=== PATIENT | female | born 1985 | race Two or more races ===

== ENCOUNTER 2019-10-05 02:13 | Inpatient (IN) | payer OTHER ==
[~2019-10-05 02:13] MED LIST: Bupivacaine 0.25% 10 ML SDV ONE; ePHEDrine 50 MG/ML SDV ONE
[2019-10-05] MEDS ORDERED: Acetaminophen 325 MG Tab PO PRN ×2 (05:26→16:23)
[2019-10-05] MEDS ORDERED: Lidocaine 1% 50 ML MDV INJECT ONE (05:26)
[2019-10-05] MEDS ORDERED: Nalbuphine 10 MG/ML Syringe IVPUSH PRN (05:26)
[2019-10-05] MEDS ORDERED: Calcium Carbonate 500 MG Tab.Chew PO PRN (05:26)
[2019-10-05] MEDS ORDERED: Sodium Chloride 0.9% 10 ML Syringe FLUSH PRN (05:26)
[2019-10-05] MEDS ORDERED: Ondansetron 4 MG/2 ML SDV IVPUSH PRN (05:26)
[2019-10-05] MEDS ORDERED: Oxytocin/Lactated Ringers 10 UNIT/1,000 ML BAG IV SCH ×2 (05:30)
[2019-10-05] MEDS ORDERED: fentaNYL 100 MCG/2 ML SDV EPIDUR PRN (05:54)
[2019-10-05] MEDS ORDERED: diphenhydrAMINE 50 MG/ML SDV IVPUSH PRN (05:54)
[2019-10-05] MEDS ORDERED: Bupivacaine/fentaNYL/NS 100 ML Bag EPIDUR PRN (05:54)
[2019-10-05] MEDS: Lactated Ringers 1,000 ML IV SCH ×3 (06:10→11:27)
--- NOTE | 2019-10-05 06:29 | PCM.PREANE ---
Preanesthetic Assessment - Procedure Proposed Procedure: epidural - Anesthesia/Transfusion/Family Hx Anesthesia History: Prior Anesthesia Without Reaction Family History of Anesthesia Reaction: No Transfusion History: No Prior Transfusion(s) - Review of Systems General: No Symptoms Pulmonary: No Symptoms Cardiovascular: No Symptoms Gastrointestinal: Abdominal Pain (labor) Neurological: No Symptoms Other: Reports: None - Physical Assessment Vital Signs: Last Vital Signs Temp 36.4 C 10/05/19 02:31 Pulse 91 10/05/19 02:31 Resp 16 10/05/19 02:31 BP 113/60 10/05/19 02:31 Pulse Ox 98 10/05/19 02:31 Height: 1.55 m Weight: 81.193 kg ASA Class: 2 Mental Status: Alert & Oriented x3 Airway Class: Mallampati = 1 Dentition: Reports: Normal Dentition Thyro-Mental Finger Breadths: 3 Mouth Opening Finger Breadths: 3 ROM/Head Extension: Full Lungs: Clear to Auscultation, Normal Respiratory Effort Cardiovascular: Regular Rate, Regular Rhythm - Lab Values: Laboratory Last Values WBC 9.97 K/mm3 (3.98-10.04) 10/05/19 05:35 RBC 4.35 M/mm3 (3.98-5.22) 10/05/19 05:35 Hgb 13.3 gm/dl (11.2-15.7) 10/05/19 05:35 Hct 39.4 % (34.1-44.9) 10/05/19 05:35 MCV 90.6 fl (79.4-94.8) 10/05/19 05:35 MCH 30.6 pg (25.6-32.2) 10/05/19 05:35 MCHC 33.8 g/dl (32.2-35.5) 10/05/19 05:35 RDW Std Deviation 47.1 fL (36.4-46.3) H 10/05/19 05:35 Plt Count 224 K/mm3 (182-369) 10/05/19 05:35 MPV 9.9 fl (9.4-12.3) 10/05/19 05:35 Neut % (Auto) 81.8 % (34.0-71.1) H 10/05/19 05:35 Lymph % (Auto) 13.9 % (19.3-51.7) L 10/05/19 05:35 Apache % (Auto) 3.9 % (4.7-12.5) L 10/05/19 05:35 Eos % (Auto) 0.1 (0.7-5.8) L 10/05/19 05:35 Baso % (Auto) 0.1 % (0.1-1.2) 10/05/19 05:35 Neut # (Auto) 8.15 K/mm3 (1.56-6.13) H 10/05/19 05:35 Lymph # (Auto) 1.39 K/mm3 (1.18-3.74) 10/05/19 05:35 [place] # (Auto) 0.39 K/mm3 (0.24-0.36) H 10/05/19 05:35 Eos # (Auto) 0.01 K/mm3 (0.04-0.36) L 10/05/19 05:35 Baso # (Auto) 0.01 K/mm3 (0.01-0.08) 10/05/19 05:35 - Allergies Allergies/Adverse Reactions: Allergies Allergy/AdvReac Type Severity Reaction Status Date / Time No Known Allergies Allergy Verified 10/05/19 02:32 - Anesthesia Plan Pre-Op Medication Ordered: None - Acknowledgements Anesthesia Type Planned: Epidural Pt an Appropriate Candidate for the Planned Anesthesia: Yes Alternatives and Risks of Anesthesia Discussed w Pt/Guardian: Yes Pt/Guardian Understands and Agrees with Anesthesia Plan: Yes PreAnesthesia Questionnaire - Past Health History Medical/Surgical History: Denies Medical/Surgical History HEENT History: Reports: Other (See Below) Other HEENT History: Central serous chorioretinopathy Gastrointestinal History: Reports: GERD 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: - SUBSTANCE USE Smoking Status *Q: Never Smoker Second Hand Smoke Exposure: No Recreational Drug Use History: No - HOME MEDS Home Medications: Home Meds Iron,Carbonyl/Vit C/Vit B12/Fa [Iron 100 Plus Tablet] 1 each PO DAILY 10/05/19 [ History] ATS656/Iron Fumarate/FA/DSS [ 19 Tablet] 1 each PO DAILY 10/05/19 [ History] - CURRENT (IN HOUSE) MEDS Current Meds: Current Medications Acetaminophen (Tylenol) 650 mg PO Q4H PRN PRN Reason: Pain (Mild 1-3) and fever Calcium Carbonate/Glycine (Tums) 1,000 mg PO Q2H PRN PRN Reason: Indigestion Diphenhydramine HCl (Benadryl) 25 mg IVPUSH Q6H PRN PRN Reason: Itching Ephedrine Sulfate (Ephedrine Sulfate) 5 mg IVPUSH ASDIRECTED PRN PRN Reason: HYPOTENTSION Fentanyl (Sublimaze) 100 mcg EPIDUR Q3H PRN PRN Reason: Pain Last Admin: 10/05/19 06:11 Dose: 100 mcg Fentanyl/Bupivacaine HCl (Fentanyl/Bupivacaine/Ns 2 Mcg-0.125% 100 Ml) 1 ml EPIDUR CONTINUOUS PRN PRN Reason: Pain Last Admin: 10/05/19 06:11 Dose: 100 ml Lactated Ringer's (Ringers, Lactated) 1,000 mls @ 100 mls/hr IV ASDIRECTED LANDRY Last Admin: 10/05/19 06:10 Dose: 100 mls/hr Oxytocin/Lactated Ringer's (Pitocin In Lr 10 Units/1,000 Ml) 10 unit in 1,000 mls @ 100 mls/hr IV .CONTINUOUS LANDRY Oxytocin/Lactated Ringer's (Pitocin In Lr 10 Units/1,000 Ml) 10 unit in 1,000 mls @ 12 mls/hr IV TITRATE LANDRY; Protocol Nalbuphine HCl (Nubain) 10 mg IVPUSH Q2H PRN PRN Reason: Pain Ondansetron HCl (Zofran) 4 mg IVPUSH Q4H PRN PRN Reason: Nausea/Vomiting Sodium Chloride (Saline Flush) 10 ml FLUSH ASDIRECTED PRN PRN Reason: Keep Vein Open Discontinued Medications Lidocaine HCl (Xylocaine 1%) 50 ml INJECT ONETIME ONE Stop: 10/05/19 05:27
--- NOTE | 2019-10-05 06:33 | PCM.SN ---
- Free Text/Narrative Note: 0530 called for IV start right wrist 20 ga. good blood flow good flush out room at 0610
[2019-10-05] MEDS: ePHEDrine 50 MG/ML SDV IVPUSH PRN ×2 (06:45→06:55)
--- NOTE | 2019-10-05 12:09 | PCM.LDHP ---
L&D History of Present Illness - General Date of Service: 10/05/19 Admit Problem/Dx: Patient Status Order with Admit Dx/Problem 10/05/19 02:31 Patient Status [ADT] Routine 10/05/19 05:00 Admission Status [Patient Status] [ADT] Routine Admission Diagnosis/Problem Admission Diagnosis/Problem 10/05/19 11:56 Brooke is a 33-year-old 2 para 0010 female admitted to labor and delivery at 38-5/7 weeks gestational age with an RASHMI of 10/14/2019 in active labor with progressive cervical dilation. She presently is about 5 cm dilated, 100% effaced, -2 station, bag barone intact ruptured with resultant clear amniotic fluid. Source of Information: Patient History Limitations: Reports: No Limitations - History of Present Illness Introduction:: Brooke is a 33-year-old 2 para 0010 female admitted to labor and delivery at 38-5/7 weeks gestational age with an RAHSMI of 10/14/2019 in active labor with progressive cervical dilation. She presently is about 5 cm dilated, 100% effaced, -2 station, bag barone intact ruptured with resultant clear amniotic fluid. She started labor within the last 18 hours. It progressed. She is not able to get any rest during the course of last night. heart tones are reassuring. 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 Patient had menarche at age 16. Cycles regular every 28 days. She has regular monthly cycles that are timolol. Not using any control to time conception. Final RASHMI is 01/07/2019. It is by this last menstrual period and the supporting ultrasounds done 03/12/2019, 2018 and 06/24/2019 by which the RASHMI of 10/14/2019 was determined. Patient had a previous spontaneous miscarriage first trimester. Her hCG was positive on 2018. course: Patient was initially seen for first visit on 2018 at 9-1/7 weeks gestational age. She is seen on a regular basis throughout the course of the . Her weight increased from 154.8 pounds 276.6 pounds for a 22 pound weight gain. Fundal height growth was appropriate. Vital signs remained stable throughout the course. Of note is a recent event that happened regarding patient's right eye. She had blurry vision and was seen in clinic. At that time she was sent to ophthalmology approximately the second week of September 2019 at which time her vision was 20/150 in the right eye with exam normal to exception of was diagnosed as central serous chorioretinopathy in the right eye. This is felt to be a benign process and one that would resolve with time. Ophthalmology gave permission for patient to have normal labor and natural delivery. Patient feels symptoms have significantly improved since the initial diagnosis of this chorioretinopathy. The symptoms whatsoever and is doing fine. Baby has been active. Patient is Rh- and did receive RhoGAM during the course of her . As is given on 07/23/2019. Laboratory testing and shows blood to be A- with a negative antibody screen. Hemoglobin was 13.6 g/dL. Platelets are 274,000. Patient is rubella immune. RPR is nonreactive. Hepatitis B surface antigen and HIV assays were both negative. Chlamydia and gonorrhea tests were both negative. Second trimester hemoglobin was 11.4 g/dL. Platelets are 275,000. One-hour GTT was normal at 112 mg/dL. Group B strep screen was negative. Allergies: None Medications: 1. Vitamin D 1.5 mg capsules weekly 2. Multivitamins daily Past medical history: 1. First trimester miscarriage. 2. Serous chorioretinopathyright eye Past surgical history: 1. Breast augmentation surgery 2006. Family history: Paternal grandmother with breast cancer. Paternal grandmother with liver cancerwas not and alcohol consumer. Maternal grandfather with pancreatic cancer. Patient is an only child. Social history: Patient is . is Reji. She lives in [place], [place]. She does not work outside the home. She does not use any significant most alcohol, drugs or tobacco. Review of systems: In general patient has only the complaint of contractions noted. She is tolerating these very well. Skin: Negative HEENT: Right eye shows some blurriness of vision but this is significantly improved over approximate 2 weeks ago when diagnosis of serous chorioretinopathy was made. Lungs: No infectious symptoms or shortness of breath Cardiovascular: No chest pain or exercise intolerance. GI: Negative : Changes associated with . Musculoskeletal: Negative Neurological: Negative In general the patient is well-developed, well-nourished, pleasant female of stated age in no acute distress. Skin is warm dry without lesions. HEENT, neck and back within normal limits. Lungs: Normal respiratory effort noted. Cardiovascular regular rate and rhythm is noted. Abdomen is gravid with fundal height consistent with term . Genital per digital evaluation as outlined in history of present illness. Extremities and neurological exam are grossly within normal limits. Pain Score: 0 - Related Data Allergies/Adverse Reactions: Allergies Allergy/AdvReac Type Severity Reaction Status Date / Time No Known Allergies Allergy Verified 10/05/19 02:32 Home Medications: Home Meds Iron,Carbonyl/Vit C/Vit B12/Fa [Iron 100 Plus Tablet] 1 each PO DAILY 10/05/19 [ History] EXI538/Iron Fumarate/FA/DSS [ 19 Tablet] 1 each PO DAILY 10/05/19 [ History] Past Medical History - Past Health History Medical/Surgical History: Denies Medical/Surgical History HEENT History: Reports: Other (See Below) Other HEENT History: Central serous chorioretinopathy Gastrointestinal History: Reports: GERD 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: Social & Family History - Family History Family Medical History: Noncontributory - Tobacco Use Smoking Status *Q: Never Smoker Second Hand Smoke Exposure: No - Caffeine Use Caffeine Use: Reports: Coffee - Recreational Drug Use Recreational Drug Use: No H&P Review of Systems - Review of Systems: Review Of Systems: See Below L&D Exam - Exam Exam: See Below - Vital Signs Vital Signs: Last Vital Signs Temp 36.4 C 10/05/19 02:31 Pulse 91 10/05/19 02:31 Resp 16 10/05/19 02:31 BP 113/60 10/05/19 02:31 Pulse Ox 98 10/05/19 02:31 Weight: 81.193 kg - Patient Data Lab Results Last 24 hrs: Laboratory Results - last 24 hr 10/05/19 Range/Units 05:35 WBC 9.97 (3.98-10.04) K/mm3 RBC 4.35 (3.98-5.22) M/mm3 Hgb 13.3 (11.2-15.7) gm/dl Hct 39.4 (34.1-44.9) % MCV 90.6 (79.4-94.8) fl MCH 30.6 (25.6-32.2) pg MCHC 33.8 (32.2-35.5) g/dl RDW Std Deviation 47.1 H (36.4-46.3) fL Plt Count 224 (182-369) K/mm3 MPV 9.9 (9.4-12.3) fl Neut % (Auto) 81.8 H (34.0-71.1) % Lymph % (Auto) 13.9 L (19.3-51.7) % Harrison % (Auto) 3.9 L (4.7-12.5) % Eos % (Auto) 0.1 L (0.7-5.8) Baso % (Auto) 0.1 (0.1-1.2) % Neut # (Auto) 8.15 H (1.56-6.13) K/mm3 Lymph # (Auto) 1.39 (1.18-3.74) K/mm3 Harrison # (Auto) 0.39 H (0.24-0.36) K/mm3 Eos # (Auto) 0.01 L (0.04-0.36) K/mm3 Baso # (Auto) 0.01 (0.01-0.08) K/mm3 Result Diagrams: 10/05/19 05:35 Problem List Initiated/Reviewed/Updated: Yes Orders Last 24hrs: Active Orders 24 hr Category Date Time Status Admission Status [Patient Status] [ADT] Routine ADT 10/05/19 05:00 Active Activity as Tolerated [RC] PFP Care 10/05/19 05:29 Active Communication Order [RC] ASDIRECTED Care 10/05/19 05:29 Active Communication Order [RC] ASDIRECTED Care 10/05/19 05:54 Active Notify Provider [RC] ASDIRECTED Care 10/05/19 05:54 Active Notify Provider [RC] PFP Care 10/05/19 05:29 Active Notify Provider [RC] PRN Care 10/05/19 05:29 Active Oxygen Therapy [RC] ASDIRECTED Care 10/05/19 05:54 Active Peripheral IV Care [RC] . DIRECTED Care 10/05/19 05:29 Active Pulse Oximetry [RC] ASDIRECTED Care 10/05/19 05:54 Active Vital Signs [RC] PER UNIT ROUTINE Care 10/05/19 02:31 Active Regular Diet [DIET] Diet 10/05/19 Breakfast Active RAPID PLASMA REAGIN,RPR [CHEM] Routine Lab 10/05/19 05:35 Received Acetaminophen [Tylenol] Med 10/05/19 05:26 Active 650 mg PO Q4H PRN Bupivacaine/fentaNYL/NS [fentaNYL/Bupivacaine/NS 2 MCG- Med 10/05/19 05:54 Active 0.125% 100 ML] 1 ml EPIDUR CONTINUOUS PRN Calcium Carbonate [Tums] Med 10/05/19 05:26 Active 1,000 mg PO Q2H PRN Lactated Ringers [Ringers, Lactated] 1,000 ml Med 10/05/19 05:30 Active IV ASDIRECTED Nalbuphine [Nubain] Med 10/05/19 05:26 Active 10 mg IVPUSH Q2H PRN Ondansetron [Zofran] Med 10/05/19 05:26 Active 4 mg IVPUSH Q4H PRN Oxytocin/Lactated Ringers [Pitocin in LR 10 Units/1,000 Med 10/05/19 05:30 Active ML] 10 unit in 1,000 ml IV .CONTINUOUS Oxytocin/Lactated Ringers [Pitocin in LR 10 Units/1,000 Med 10/05/19 05:30 Active ML] 10 unit in 1,000 ml IV TITRATE Sodium Chloride 0.9% [Saline Flush] Med 10/05/19 05:26 Active 10 ml FLUSH ASDIRECTED PRN diphenhydrAMINE [Benadryl] Med 10/05/19 05:54 Active 25 mg IVPUSH Q6H PRN ePHEDrine [ePHEDrine sulfate] Med 10/05/19 05:54 Active 5 mg IVPUSH ASDIRECTED PRN fentaNYL [Sublimaze] Med 10/05/19 05:54 Active 100 mcg EPIDUR Q3H PRN Electronic Heart Tones Ext w TOCO [WOMSER] Oth 10/05/19 05:29 Ordered Routine Electronic Heart Tones Internal [WOMSER] Per Unit Oth 10/05/19 05:29 Ordered Routine Peripheral IV Insertion Adult [OM.PC] Routine Oth 10/05/19 05:29 Ordered Resuscitation Status Routine Resus Stat 10/05/19 02:31 Ordered Medication Orders Acetaminophen (Tylenol) 650 mg PO Q4H PRN PRN Reason: Pain (Mild 1-3) and fever Calcium Carbonate/Glycine (Tums) 1,000 mg PO Q2H PRN PRN Reason: Indigestion Diphenhydramine HCl (Benadryl) 25 mg IVPUSH Q6H PRN PRN Reason: Itching Ephedrine Sulfate (Ephedrine Sulfate) 5 mg IVPUSH ASDIRECTED PRN PRN Reason: HYPOTENTSION Last Admin: 10/05/19 06:55 Dose: 5 mg Admin: 10/05/19 06:45 Dose: 5 mg Fentanyl (Sublimaze) 100 mcg EPIDUR Q3H PRN PRN Reason: Pain Last Admin: 10/05/19 06:11 Dose: 100 mcg Fentanyl/Bupivacaine HCl (Fentanyl/Bupivacaine/Ns 2 Mcg-0.125% 100 Ml) 1 ml EPIDUR CONTINUOUS PRN PRN Reason: Pain Last Admin: 10/05/19 06:11 Dose: 100 ml Lactated Ringer's (Ringers, Lactated) 1,000 mls @ 100 mls/hr IV ASDIRECTED LANDRY Last Admin: 10/05/19 11:27 Dose: 100 mls/hr Infusion: 10/05/19 11:27 Dose: 100 mls/hr Admin: 10/05/19 07:07 Dose: 100 mls/hr Infusion: 10/05/19 07:07 Dose: 100 mls/hr Admin: 10/05/19 06:10 Dose: 100 mls/hr Oxytocin/Lactated Ringer's (Pitocin In Lr 10 Units/1,000 Ml) 10 unit in 1,000 mls @ 100 mls/hr IV .CONTINUOUS LANDRY Oxytocin/Lactated Ringer's (Pitocin In Lr 10 Units/1,000 Ml) 10 unit in 1,000 mls @ 12 mls/hr IV TITRATE LANDRY; Protocol Last Titration: 10/05/19 11:41 Dose: 6 munits/min, 36 mls/hr Titration: 10/05/19 11:17 Dose: 4 munits/min, 24 mls/hr Admin: 10/05/19 10:49 Dose: 2 munits/min, 12 mls/hr Nalbuphine HCl (Nubain) 10 mg IVPUSH Q2H PRN PRN Reason: Pain Ondansetron HCl (Zofran) 4 mg IVPUSH Q4H PRN PRN Reason: Nausea/Vomiting Sodium Chloride (Saline Flush) 10 ml FLUSH ASDIRECTED PRN PRN Reason: Keep Vein Open Assessment/Plan Comment:: 1.8-5/7 week intrauterine , active labor, progressive cervical dilation. 2. Group B strep screen negative 3. Patient desiring epidural 4. Rubella immune. 5. Lenses vaccination given 06/19/2019. 6. T dap immunization given 07/17/2019. 7. Patient plans to breast-feed. Plan: 1. Anticipate normal spontaneous vaginal delivery 2. Epidural when necessary for labor analgesia 3. Support breast-feeding decision 4. Routine labor care 5. RPR and CBC upon admission.
--- NOTE | 2019-10-05 15:59 | PCM.SN ---
- Free Text/Narrative Note: Brooke is a 33-year-old 2 para 0010 female admitted to labor and delivery at 38-5/7 weeks gestational age with an RASHMI of 10/14/2019 in active labor with progressive cervical dilation. She presently is about 5 cm dilated, 100% effaced, -2 station, bag barone intact ruptured with resultant clear amniotic fluid. The patient made rapid progress and by approximately 1500 hrs. on 10/05/2019 she achieved complete cervical dilation. She pushed for approximately half an hour and delivered a viable, 6, female named Jasmyn Yeager in a direct occiput anterior position at 1532 hrs. The baby weighed 3010 g (6 pounds 10.2 ounces), had Apgars of 8 and 9 and a length of 19.5 inches. Baby was placed on mom's abdomen. Nose and mouth were bulb suctioned. Pitocin was increased to 500 mL per hour (20 units in a liter concentration) with intention to increase uterine tone and decrease likelihood of bleeding. Vocal cords lump pulsate for approximately 2 minutes. It was then clamped 2 and cut by the baby's father Reji. Umbilical cord blood was obtained. The umbilical cord had 3 blood vessels present within. The patient had a second-degree perineal laceration which was repaired with 3-0 Monocryl in a routine fashion. Epidural analgesia was used for perineal anesthesia for the repair. Patient tolerated the repair well. The placenta delivered in a Hammonds presentation, appeared intact and complete and was discarded per patient desire. Blood loss was 200 mL. Patient plans to breast-feed. Condition: Good
[2019-10-05] MEDS ORDERED: Witch Hazel Medicated Pads 40/Jar TOP PRN (16:23)
[2019-10-05] MEDS ORDERED: Benzocaine/Menthol 20%-0.5% Spray 56 GM Canister TOP PRN (16:23)
[2019-10-06] MEDS: Ibuprofen 600 MG Tab PO PRN ×3 (01:36→17:32)
--- NOTE | 2019-10-06 07:57 | PCM48HPAN ---
Post Anesthesia Note - EVALUATION WITHIN 48HRS OF ANESTHETIC Vital Signs in Normal Range: Yes Patient Participated in Evaluation: Yes Respiratory Function Stable: Yes Airway Patent: Yes Cardiovascular Function Stable: Yes Hydration Status Stable: Yes Pain Control Satisfactory: Yes Nausea and Vomiting Control Satisfactory: Yes Mental Status Recovered: Yes Vital Signs: Last Vital Signs Temp 36.7 C 10/06/19 03:07 Pulse 98 10/06/19 03:07 Resp 16 10/06/19 03:07 BP 94/47 L 10/06/19 03:07 Pulse Ox 96 10/06/19 03:07
--- NOTE | 2019-10-06 09:04 | PCM.SN ---
- Free Text/Narrative Note: note: Patient is doing well in the period. Minimal lochia, voiding well, ambulated without problems. Nursing without concerns. Patient is afebrile, vital signs are stable Abdomen is flat, soft, uterus is below the umbilicus and is firm and nontender. Legs are nontender. Assessment: recovery going well. Plan: Routine care. Patient be discharged home within the next 24-48 hours.
[2019-10-06] MEDS: Docusate Sodium 100 MG Cap PO PRN (09:18)
[2019-10-06] MEDS: Prenatal Multivitamin with Calcium/Folic Acid/Iron Tab PO SCH (09:18)
[2019-10-07] MEDS: Ibuprofen 600 MG Tab PO PRN (06:14)
[2019-10-07] MEDS: Docusate Sodium 100 MG Cap PO PRN (06:14)
--- NOTE | 2019-10-07 09:15 | PCM.DCSUM1 ---
Discharge Summary - Hospital Course Free Text/Narrative:: Brooke is a 33-year-old 2 para 0010 female admitted to labor and delivery at 38-5/7 weeks gestational age with an RASHMI of 10/14/2019 in active labor with progressive cervical dilation. She presently is about 5 cm dilated, 100% effaced, -2 station, bag barone intact ruptured with resultant clear amniotic fluid. The patient made rapid progress and by approximately 1500 hrs. on 10/05/2019 she achieved complete cervical dilation. She pushed for approximately half an hour and delivered a viable, 6, female infant named Jasmyn Yeager in a direct occiput anterior position at 1532 hrs. The baby weighed 3010 g (6 pounds 10.2 ounces), had Apgars of 8 and 9 and a length of 19.5 inches. Baby was placed on mom's abdomen. Nose and mouth were bulb suctioned. Pitocin was increased to 500 mL per hour (20 units in a liter concentration) with intention to increase uterine tone and decrease likelihood of bleeding. Vocal cords lump pulsate for approximately 2 minutes. It was then clamped 2 and cut by the baby's father Reji. Umbilical cord blood was obtained. The umbilical cord had 3 blood vessels present within. The patient had a second-degree perineal laceration which was repaired with 3-0 Monocryl in a routine fashion. Epidural analgesia was used for perineal anesthesia for the repair. Patient tolerated the repair well. The placenta delivered in a Hammonds presentation, appeared intact and complete and was discarded per patient desire. Blood loss was 200 mL. Patient plans to breast-feed. patient is doing well. She is nursing without problems, has minimal lochia, is voiding well and is ambulating without concerns. She is desiring discharge home. Condition: Good - Discharge Data Discharge Date: 10/07/19 Discharge Disposition: Home, Self-Care 01 Condition: Good - Referral to Home Health Primary Care Physician: Bryan Graham MD - Patient Instructions Diet: Regular Diet as Tolerated (Nursing diet with increased calcium and calories as recommended) Activity: As Tolerated (No intercourse or tampons until bleeding resolves) Driving: May Drive Today Showering/Bathing: May Shower (May take a bath) Notify Provider of: Fever, Increased Pain, Swelling and Redness, Nausea and/or Vomiting - Discharge Plan Home Medications: Home Meds Iron,Carbonyl/Vit C/Vit B12/Fa [Iron 100 Plus Tablet] 1 each PO DAILY 10/05/19 [ History] [id number]/Iron Fumarate/FA/DSS [ 19 Tablet] 1 each PO DAILY 10/05/19 [ History] Acetaminophen [Tylenol] 650 mg PO Q4H PRN tablet 10/07/19 [Rx] Ibuprofen [Motrin] 600 mg PO Q4H PRN tablet 10/07/19 [Rx] Referrals: Bryan Graham MD [Primary Care Provider] - ([facility] ) - Discharge Summary/Plan Comment DC Time >30 min.: No Discharge Summary/Plan Comment: Discharge instructions: 1. Discharge home 2. Diet, activity and follow-up discussed with patient. Recommend nursing diet with increased calories and calcium. 3. Precautions given concern increased pain, bleeding, temperature, signs/ symptoms of DVT/PE. 4. Medications per home medication was printed, discussed with and given to the patient. 5. Return to clinic-Dr. Graham[facility] in 2 weeks. Diagnosis: Term -delivered Condition: Good - Patient Data Vitals - Most Recent: Last Vital Signs Temp 36.5 C 10/07/19 02:16 Pulse 76 10/07/19 02:16 Resp 16 10/07/19 02:16 BP 102/64 10/07/19 02:16 Pulse Ox 98 10/07/19 02:16 Weight - Most Recent: 81.193 kg I&O - Last 24 hours: Intake & Output 10/06/19 10/07/19 10/07/19 22:59 06:59 14:59 Intake Total 420 Balance 420 Lab Results - Last 24 hrs: Laboratory Results - last 24 hr 10/06/19 Range/Units 05:15 Blood Type A NEGATIVE Gel Antibody Screen Negative Rhogam Indicated Yes, baby rh unknown H Med Orders - Current: Current Medications Acetaminophen (Tylenol) 650 mg PO Q4H PRN PRN Reason: mild pain or fever Last Admin: 10/06/19 21:26 Dose: 650 mg Benzocaine/Menthol (Dermoplast Pain Relief [place]) 0 gm TOP ASDIRECTED PRN PRN Reason: Perineal Comfort Measure Last Admin: 10/05/19 19:35 Dose: 1 applic Docusate Sodium (Colace) 100 mg PO BID PRN PRN Reason: Constipation Last Admin: 10/07/19 06:14 Dose: 100 mg Ibuprofen (Motrin) 600 mg PO Q4H PRN PRN Reason: Mild pain or fever Last Admin: 10/07/19 06:14 Dose: 600 mg Prenat Multivit/[employer] Supervisor/Iron/Folic Ac ( Plus Iron) 1 each PO DAILY LNADRY Last Admin: 10/06/19 09:18 Dose: 1 each Witch Marleen (Tucks) 1 pad TOP ASDIRECTED PRN PRN Reason: Pain Last Admin: 10/05/19 19:35 Dose: 1 applic Discontinued Medications Acetaminophen (Tylenol) 650 mg PO Q4H PRN PRN Reason: Pain (Mild 1-3) and fever Last Admin: 10/05/19 14:28 Dose: 650 mg Bupivacaine HCl (Sensorcaine-Mpf 0.25%) 10 ml .ROUTE .Andela-MED ONE Stop: 10/05/19 00:01 Calcium Carbonate/Glycine (Tums) 1,000 mg PO Q2H PRN PRN Reason: Indigestion Diphenhydramine HCl (Benadryl) 25 mg IVPUSH Q6H PRN PRN Reason: Itching Ephedrine Sulfate (Ephedrine Sulfate) 5 mg IVPUSH ASDIRECTED PRN PRN Reason: HYPOTENTSION Last Admin: 10/05/19 06:55 Dose: 5 mg Ephedrine Sulfate (Ephedrine Sulfate) 50 mg .ROUTE .STK-MED ONE Stop: 10/05/19 00:01 Fentanyl (Sublimaze) 100 mcg EPIDUR Q3H PRN PRN Reason: Pain Last Admin: 10/05/19 06:11 Dose: 100 mcg Fentanyl/Bupivacaine HCl (Fentanyl/Bupivacaine/Ns 2 Mcg-0.125% 100 Ml) 1 ml EPIDUR CONTINUOUS PRN PRN Reason: Pain Last Admin: 10/05/19 06:11 Dose: 100 ml Lactated Ringer's (Ringers, Lactated) 1,000 mls @ 100 mls/hr IV ASDIRECTED LANDRY Last Admin: 10/05/19 11:27 Dose: 100 mls/hr Oxytocin/Lactated Ringer's (Pitocin In Lr 10 Units/1,000 Ml) 10 unit in 1,000 mls @ 100 mls/hr IV .CONTINUOUS LANDRY Oxytocin/Lactated Ringer's (Pitocin In Lr 10 Units/1,000 Ml) 10 unit in 1,000 mls @ 12 mls/hr IV TITRATE LANDRY; Protocol Last Titration: 10/05/19 13:02 Dose: 8 munits/min, 48 mls/hr Lidocaine HCl (Xylocaine 1%) 50 ml INJECT ONETIME ONE Stop: 10/05/19 05:27 Last Admin: 10/05/19 07:19 Dose: Not Given Nalbuphine HCl (Nubain) 10 mg IVPUSH Q2H PRN PRN Reason: Pain Ondansetron HCl (Zofran) 4 mg IVPUSH Q4H PRN PRN Reason: Nausea/Vomiting Sodium Chloride (Saline Flush) 10 ml FLUSH ASDIRECTED PRN PRN Reason: Keep Vein Open
[2019-10-07] MEDS: Prenatal Multivitamin with Calcium/Folic Acid/Iron Tab PO SCH (09:51)
== END 2019-10-07 13:02 | disposition home or self-care (01) | DRG 807 ==
LOC: JD.OB 02:13 → JD.OBCHECK 02:13 → JD.OB 05:00 → JD.OBCHECK 05:00 → OBSVTOIN 15:32 → JD.OB 15:59
PROVIDERS: ADMIT Obstetrics & Gynecology; ATTEND Obstetrics & Gynecology
PROC: 10E0XZZ Delivery of Products of Conception, External Approach (ICD-10-PCS; principal; 2019-10-05)
PROC: 3E0R3BZ Introduction of Anesthetic Agent into Spinal Canal, Percutaneous Approach (ICD-10-PCS; 2019-10-05)
PROC: 0KQM0ZZ Repair Perineum Muscle, Open Approach (ICD-10-PCS; 2019-10-05)
DX: O70.1 Second degree perineal laceration during delivery (principal); Z37.0 Single live birth; Z3A.38 38 weeks gestation of pregnancy; Z79.899 Other long term (current) drug therapy
CPT/HCPCS: 01967; 36415; 51701; 51702; 59025; 59409; 85025; 85461; 86592; 86850; 86900; 86901; A9270-GY; J2590; J2790; J3010; J3490; J7120

== ENCOUNTER 2021-11-25 23:56 | Inpatient (IN) | payer OTHER ==
[2021-11-26] MEDS ORDERED: Ondansetron 4 MG/2 ML SDV IVPUSH PRN (00:10)
[2021-11-26] MEDS ORDERED: Nalbuphine 10 MG/1 ML Vial IVPUSH PRN (00:10)
[2021-11-26] MEDS ORDERED: Sodium Chloride 0.9% 10 ML Syringe FLUSH PRN (00:10)
[2021-11-26] MEDS ORDERED: Oxytocin/Lactated Ringers 10 UNIT/1,000 ML BAG IV SCH (00:15)
[2021-11-26] MEDS ORDERED: Lactated Ringers 1,000 ML IV SCH (00:15)
[2021-11-26] MEDS ORDERED: Oxytocin/Lactated Ringers 20 UNIT/1,000 ML BAG ONE (00:42)
[2021-11-26] MEDS ORDERED: Lidocaine 1% 50 ML MDV ONE (00:54)
[2021-11-26] MEDS: Ibuprofen 600 MG Tab PO PRN ×3 (05:00→19:54)
[2021-11-26] MEDS ORDERED: Magnesium Hydroxide 400 MG/5 ML Susp 30 ML Cup PO PRN (07:45)
[2021-11-26] MEDS ORDERED: Acetaminophen 325 MG Tab PO PRN (07:45)
[2021-11-26] MEDS ORDERED: Hydrocortisone Acetate 25 MG Supp RECTAL PRN (07:45)
[2021-11-26] MEDS ORDERED: Witch Hazel Medicated Pads 40/Jar TOP PRN (07:45)
[2021-11-26] MEDS ORDERED: Oxytocin/Lactated Ringers 20 UNIT/1,000 ML BAG IV SCH (07:45)
[2021-11-26] MEDS ORDERED: Benzocaine/Menthol 20%-0.5% Spray 78 GM Cannister TOP PRN (07:45)
[2021-11-26] MEDS ORDERED: Sodium Chloride 0.9% 10 ML Syringe FLUSH SCH (09:00)
[2021-11-26] MEDS: Prenatal Multivitamin with Calcium/Folic Acid/Iron Tab PO SCH (09:42)
[2021-11-26] MEDS: Docusate Sodium 100 MG Cap PO PRN (09:42)
[2021-11-27] MEDS: Prenatal Multivitamin with Calcium/Folic Acid/Iron Tab PO SCH (08:56)
[2021-11-27] MEDS: Docusate Sodium 100 MG Cap PO PRN (08:56)
== END 2021-11-27 10:55 | disposition home or self-care (01) | DRG 807 ==
LOC: JD.OB 23:56 → JD.OBCHECK 23:56 → JD.OB 11-26 00:10 → JD.OBCHECK 11-26 00:10 → OBSVTOIN 11-26 01:16
PROVIDERS: ADMIT Obstetrics & Gynecology; ATTEND Obstetrics & Gynecology
PROC: 10E0XZZ Delivery of Products of Conception, External Approach (ICD-10-PCS; principal; 2021-11-26)
PROC: 0KQM0ZZ Repair Perineum Muscle, Open Approach (ICD-10-PCS; 2021-11-26)
PROC: 3E0334Z Introduction of Serum, Toxoid and Vaccine into Peripheral Vein, Percutaneous Approach (ICD-10-PCS; 2021-11-26)
DX: O99.62 Diseases of the digestive system complicating childbirth (principal); Z37.0 Single live birth; K21.9 Gastro-esophageal reflux disease without esophagitis; O70.1 Second degree perineal laceration during delivery; O99.214 Obesity complicating childbirth; O99.02 Anemia complicating childbirth; D64.9 Anemia, unspecified; O26.893 Other specified pregnancy related conditions, third trimester; Z67.11 Type A blood, Rh negative; Z3A.38 38 weeks gestation of pregnancy
CPT/HCPCS: 36415; 59025; 59409; 85461; 86592; 86850; 86900; 86901; A9270-GY; J2590; J2790

== ENCOUNTER 2022-04-11 09:58 | Day surgery (SDC) | payer SELFPAY ==
[~2022-04-11 09:58] MED LIST changes: -Bupivacaine 0.25% 10 ML SDV ONE; +Lactated Ringers 1,000 ML IV SCH; +Lidocaine 1%/Sod Bicarbonate in NS 8.4% 1 ML Syringe IDERM PRN; +Sodium Chloride 0.9% 10 ML Syringe FLUSH PRN; +Sodium Chloride 0.9% 10 ML Syringe FLUSH SCH; -ePHEDrine 50 MG/ML SDV ONE
[2022-04-11] MEDS ORDERED: Scopolamine 1.5 MG Transdermal Patch TOP ONE (10:45)
[2022-04-11] MEDS ORDERED: Propofol 200 MG/20 ML SDV ONE (11:02)
[2022-04-11] MEDS ORDERED: Rocuronium 50 MG/5 ML Vial ONE (11:02)
[2022-04-11] MEDS ORDERED: Ondansetron 4 MG/2 ML SDV ONE (11:02)
[2022-04-11] MEDS ORDERED: Ketorolac 30 MG/ML SDV ONE (11:02)
[2022-04-11] MEDS ORDERED: Lactated Ringers 1,000 ML ONE (11:02)
[2022-04-11] MEDS ORDERED: Dexamethasone 4 MG/ML 5 ML MDV ONE (11:02)
[2022-04-11] MEDS ORDERED: Midazolam 1 MG/ML 2 ML SDV ONE (11:02)
[2022-04-11] MEDS ORDERED: fentaNYL 250 MCG/5 ML SDV ONE (11:03)
[2022-04-11] MEDS ORDERED: Bupivacaine 0.5%/EPINEPHrine 1:200,000 50 ML MDV ONE (11:22)
[2022-04-11] MEDS ORDERED: Ondansetron 4 MG/2 ML SDV IVPUSH PRN (13:00)
[2022-04-11] MEDS ORDERED: Phenylephrine HCl In 0.9% NaCl 1 MG/10 ML Vial IVPUSH PRN (13:00)
[2022-04-11] MEDS ORDERED: ePHEDrine 50 MG/ML SDV IVPUSH PRN (13:00)
[2022-04-11] MEDS ORDERED: fentaNYL 100 MCG/2 ML SDV IVPUSH PRN (13:00)
[2022-04-11] MEDS ORDERED: diphenhydrAMINE 50 MG/ML SDV IVPUSH PRN (13:00)
[2022-04-11] MEDS ORDERED: HYDROmorphone 0.5 MG/0.5 ML Syringe IVPUSH PRN (13:00)
[2022-04-11] MEDS ORDERED: Neostigmine Methylsulfate 10 MG/10 ML MDV ONE (13:11)
== END 2022-04-11 15:00 | disposition home or self-care (01) ==
LOC: JD.SDS 09:58
PROVIDERS: ATTEND Surgery
DX: K42.9 Umbilical hernia without obstruction or gangrene (principal); E78.00 Pure hypercholesterolemia, unspecified; K21.9 Gastro-esophageal reflux disease without esophagitis; E55.9 Vitamin D deficiency, unspecified; D64.9 Anemia, unspecified; Z98.890 Other specified postprocedural states; Z79.3 Long term (current) use of hormonal contraceptives; Z79.899 Other long term (current) drug therapy
CPT/HCPCS: 49585; 81025; A9270; J1100; J1885; J2250; J2405; J2704; J2710; J3010; J3490; J7120; 00750

== ENCOUNTER → 2023-02-09 | Day surgery (SDC) | payer OTHER ==
[~2023-02-09] MED LIST changes: +Doxycycline Monohydrate 100 MG Cap PO ONE; +HYDROmorphone 0.5 MG/0.5 ML Syringe IVPUSH PRN; +Ketorolac 30 MG/ML SDV IVPUSH ONE; +Lidocaine 1% 2 ML ONE; -Lidocaine 1%/Sod Bicarbonate in NS 8.4% 1 ML Syringe IDERM PRN; +Methylergonovine 0.2 MG/1 ML Amp ONE; +Midazolam 1 MG/ML 2 ML SDV ONE; +Ondansetron 4 MG/2 ML SDV IVPUSH PRN; +Ondansetron 4 MG/2 ML SDV ONE; +Propofol 200 MG/20 ML SDV ONE; +fentaNYL 100 MCG/2 ML SDV IVPUSH PRN; +fentaNYL 100 MCG/2 ML SDV ONE
[2023-02-09 07:24] LABS: BASOPHILS ABSOLUTE AUTO 0.01 K/mm3 (0.01-0.08); BASOPHILS PERCENT AUTO 0.2 % (0.1-1.2); EOSINOPHILS ABSOLUTE AUTO 0.03 K/mm3 (0.04-0.36); EOSINOPHILS PERCENT AUTO 0.6 (0.7-5.8); HEMATOCRIT 38.2 % (34.1-44.9); HEMOGLOBIN 12.3 gm/dl (11.2-15.7); LYMPHOCYTES ABSOLUTE AUTO 2.24 K/mm3 (1.18-3.74); MEAN CORPUSCULAR HEMOGLOBIN 28.3 pg (25.6-32.2); MEAN CORPUSCULAR HGB CONC 32.2 g/dl (32.2-35.5); MONOCYTES PERCENT AUTO 6.3 % (4.7-12.5); NEUTROPHILS ABSOLUTE AUTO 2.19 K/mm3 (1.56-6.13); NEUTROPHILS PERCENT AUTO 45.9 % (34.0-71.1); PLATELET COUNT,PLT 302 K/mm3 (182-369); RED BLOOD CELL COUNT 4.34 M/mm3 (3.98-5.22); WHITE BLOOD CELL COUNT,WBC 4.77 K/mm3 (3.98-10.04)
[2023-02-09 07:44] LABS: A/G RATIO 1.2 (1-2); ALBUMIN 4.1 g/dl (3.4-5.0); ANION GAP 14.7 (5-15); BILIRUBIN TOTAL 0.5 mg/dL (0.2-1.0); BUN/CREATININE RATIO 15.7 (14-18); CALCIUM 9.1 mg/dL (8.5-10.1); CREATININE 0.7 mg/dL (0.55-1.02); EST CRCL DRUG DOSING (CG) 83.12 mL/min; POTASSIUM,K 3.7 mEq/L (3.5-5.1); PROTEIN TOTAL,TP 7.5 g/dl (6.4-8.2)
[2023-02-09 08:08] LABS: APPEARANCE,URINE TURBID (Clear); BILIRUBIN,URINE NEGATIVE (Negative); COLOR,URINE YELLOW (Yellow); GLUCOSE,URINE NEGATIVE (Negative); KETONES,URINE TRACE (Negative); LEUKOCYTE ESTERASE,URINE NEGATIVE (Negative); NITRITE,URINE NEGATIVE (Negative); OCCULT BLOOD,URINE 3+ (Negative); PH,URINE 5.5 (5.0-8.0); PROTEIN,URINE NEGATIVE (Negative); UROBILINOGEN,URINE 0.2 (0.2-1.0)
== END | disposition home or self-care (01) ==
LOC: JD.SDS 06:53
PROVIDERS: ATTEND Obstetrics & Gynecology
DX: O02.1 Missed abortion (principal); K21.9 Gastro-esophageal reflux disease without esophagitis; E55.9 Vitamin D deficiency, unspecified; E78.00 Pure hypercholesterolemia, unspecified; Z98.890 Other specified postprocedural states
CPT/HCPCS: 36415; 59820; 80053; 81003; 85025; 86850; 86900; 86901; 90384; A9270; J1885; J2250; J2405; J2704; J3010; J7120; 01965; J2210; J2790; J3490